=== PATIENT | male | born 2000 | race Caucasian/White ===

== ENCOUNTER 2020-03-09 14:53 | Emergency (ER) | payer MEDICAID, OTHER ==
[~2020-03-09] VITALS: Ht 172.7 cm; Wt 80.0 kg
[2020-03-09 15:26] LABS: BASOPHILS % (AUTO) 0.3 % (0-1); EOSINOPHILS # (AUTO) 0.1 X10'3 (0-0.9); HEMATOCRIT 43.9 % (42.0-52.0); HEMOGLOBIN 14.9 g/dl (14.0-17.9); LYMPHOCYTES # (AUTO) 1.2 X10'3 (1.1-4.8); LYMPHOCYTES % (AUTO) 8.5 % (21-51); MEAN CORPUSCULAR HEMOGLOBIN 29.9 PG (27.0-31.0); MEAN CORPUSCULAR HGB CONC 33.9 g/dL (33.0-36.5); MEAN CORPUSCULAR VOLUME 88.2 FL (78-98); MEAN PLATELET VOLUME 8.4 FL (7.4-10.4); MONOCYTES # (AUTO) 1.3 X10'3 (0-0.9); MONOCYTES % (AUTO) 9.3 % (2-12); NEUTROPHILS # (AUTO) 11.4 X10'3 (1.8-7.7); NEUTROPHILS % (AUTO) 80.9 % (42-75); PLATELET COUNT 185 X10'3 (140-440); RED BLOOD COUNT 4.98 X10'6 (4.70-6.10); RED CELL DISTRIBUTION WIDTH 13.5 % (11.5-14.5); WHITE BLOOD COUNT 14.2 X10'3 (4.5-11.0)
[2020-03-09 15:31] LABS: URINE AMPHETAMINE SCREEN NEGATIVE (Neg); URINE BARBITUATE SCREEN NEGATIVE (Neg); URINE BENZODIAZEPINES SCREEN NEGATIVE (Neg); URINE CANNABINOID SCREEN POSITIVE (Neg); URINE COCAINE SCREEN NEGATIVE (Neg); URINE METHADONE SCREEN NEGATIVE (Neg); URINE OPIATE SCREEN NEGATIVE (Neg); URINE PHENCYCLIDINE SCREEN NEGATIVE (Neg)
[2020-03-09 15:38] LABS: ALANINE AMINOTRANSFERASE 36 U/L (12-78); ALBUMIN 4.6 G/DL (3.4-5.0); ALBUMIN/GLOBULIN RATIO 1.4 (1.1-1.5); ALKALINE PHOSPHATASE 70 IU/L (20-180); ANION GAP 8 (8-16); ASPARTATE AMINO TRANSFERASE 16 U/L (10-37); BILIRUBIN,TOTAL 0.4 MG/DL (0.1-1.0); BLOOD UREA NITROGEN 21 MG/DL (7-18); BUN/CREATININE RATIO 23.9 (5.4-32.0); CALCIUM 9.4 MG/DL (8.5-10.1); CHLORIDE 103 MMOL/L (99-107); CREATININE 0.88 MG/DL (0.60-1.10); GLUCOSE 110 MG/DL (70-104); SODIUM 142 MMOL/L (135-145); eGFR > 90 ML/MIN
[2020-03-09 15:40] LABS: ETHANOL < 0.010 GM/DL (0.0-0.010)
--- NOTE | 2020-03-09 15:52 | NUR ---
PACKET HAS BEEN FAXED TO [facility]
[2020-03-09] MEDS ORDERED: DIVA250T15 PO (17:15)
[2020-03-09] MEDS ORDERED: ARIP5TAB18 PO (17:15)
[2020-03-09] MEDS ORDERED: SPIR50TA5 PO (17:15)
[2020-03-09] MEDS ORDERED: ESTR0.5T28 PO (17:15)
[2020-03-09] MEDS ORDERED: ESCI20TA45 PO (17:15)
--- NOTE | 2020-03-09 17:16 | NUR ---
Pt being evaluated by [facility].
[2020-03-09 18:28] VITALS: BP 119/60
--- NOTE | 2020-03-09 18:41 | NUR ---
PT DC'D HOME, HAS HIS OWN CAR HERE AND WILL DRIVE HOME TO WHERE HE LIVES WITH HIS PARENTS, HIS MOTHER IS AWARE HE IS COMING HOME
== END 2020-03-09 18:44 | disposition home or self-care (01) ==
LOC: ER 14:53
DX: R45.851 Suicidal ideations (principal); F32.9 Major depressive disorder, single episode, unspecified; F41.9 Anxiety disorder, unspecified; F17.200 Nicotine dependence, unspecified, uncomplicated; F12.90 Cannabis use, unspecified, uncomplicated; Z79.899 Other long term (current) drug therapy
CPT/HCPCS: 36415; 80053; 80305; 80320; 85025; 99285